=== PATIENT | female | born 1970 | race Caucasian/White ===

== ENCOUNTER → 2016-12-03 | Outpatient (CLI) | payer OTHER ==
--- NOTE | 2016-12-03 22:25 | MR ---
EXAMINATION TYPE: MR thoracic spine wo con DATE OF EXAM: 12/03/2016 9:04 PM COMPARISON: 01/04/2015 HISTORY: Mid and lower back pain for several years TECHNIQUE: Multiplanar multisequence noncontrast imaging thoracic spine FINDINGS: Vertebral body hemangioma noted within T5 and T9. Alignment is maintained as well as verteb ral body height and disc interspaces. Mild loss of disc signal at T6-T7, T7-T8, and T8-T9 compatible stable mild degenerative disc disease. At T6-T7 there is a left paracentral disc herniation with mild effacement of thecal sac. It encroache s upon the anterior margin of the spinal cord results in significant effacement of thecal sac. There is slight displacement of the spinal cord secondary to mass effect upon the thecal sac. No evidence o f myelitis. Neural foramina remain patent. At T7-T8 there is a small left paracentral disc herniation with mild effacement of thecal sac. Mild e ncroachment upon the neural foramina with no definite nerve root contact. All remaining levels demonstrate no evidence of disc herniation, canal stenosis, or neural foraminal encroachment. No abnormal signal seen in the visualized spinal cord. IMPRESSION: 1. At T6-T7 there is a disc herniation paracentrally left with effacement of thecal sac and encroachm ent on the spinal cord. There is slight displacement and distortion of the spinal cord at the disc he rniation abuts the left anterolateral margin of the spinal cord. No myelitis. Findings stable. 2. At T7-T8 there is a small left paracentral disc herniation with mild effacement of thecal sac. Mil d encroachment upon the neural foramina with no definite nerve root contact. Findings stable. EXAMINATION TYPE: MR tspine/lspine wo con DATE OF EXAM: 12/03/2016 9:04 PM COMPARISON: 03/15/2015 HISTORY: Mid and lower back pain for several years TECHNIQUE: T1 and T2 axial and sagittal images of the lumbar spine are submitted. FINDINGS: There is no abnormal signal seen within the visualized spinal cord or paraspinal soft tissu es. Vertebral body hemangiomas at T12 and L1. At L1-2 there is no disc herniation or canal stenosis. No foraminal encroachment. At L2-3 there is no disc herniation or canal stenosis. No foraminal encroachment. At L3-4 there is mild disc desiccation and broad-based central disc bulging but no evidence of canal stenosis. No foraminal encroachment. Facet arthropathy noted. At L4-5 there is annular tear and broad-based central disc protrusion slightly greater paracentrally the right with mild effacement of thecal sac. No foraminal encroachment. Facet arthropathy noted. At L5-S1 there is no disc herniation or canal stenosis. No foraminal encroachment. Facet arthropathy noted. IMPRESSION: 1. Annular tear and broad-based central disc protrusion at L4-L5 with mild effacement of thecal sac i s stable. 2. Degenerative disc disease and disc bulging L3-L4 with no canal stenosis or foraminal encroachment.
== END | disposition home or self-care (01) ==
LOC: RADMRIMAIN 19:41
PROVIDERS: ATTEND Psychiatry & Neurology Neurology
DX: M51.26 Other intervertebral disc displacement, lumbar region (principal); M51.36 Other intervertebral disc degeneration, lumbar region
CPT/HCPCS: 72146; 72148

== ENCOUNTER 2016-12-18 09:47 | Day surgery (SDC) | payer OTHER ==
[2016-12-16 09:29] VITALS: BMI 21.2
[2016-12-18 10:39] VITALS: RESP 16; TEMP 97
[2016-12-18] MEDS ORDERED: LIDOCAINE 1% 20 ML VIAL (10MG/ML) FOR IV START INTRADERMA ONE (10:51)
[2016-12-18] MEDS: LACTATED RINGERS 1,000 ML IV SCH ×2 (10:51→11:13)
[2016-12-18] MEDS ORDERED: LIDOCAINE 1% INJ 10MG/ML (20 ML MDV) ONE (11:15)
[2016-12-18] MEDS ORDERED: PROPOFOL 10 MG/ML 20 ML VIAL IV ONE (11:15)
--- NOTE | 2016-12-18 11:32 | P.PCN ---
Date of Procedure: 12/18/16 Procedure(s) Performed: BRIEF HISTORY: Patient is a 46-year-old pleasant white female, scheduled for an elective colonoscopy as a part of screening for colorectal neoplasia. She does have strong family history of colon cancer diagnosed in her first cousin at age 20, paternal uncle at age 60 and maternal grandfather at age 60. PROCEDURE PERFORMED: Colonoscopy. PREOPERATIVE DIAGNOSIS: Screening for colon cancer and strong family history of colon cancer. IV sedation per Anesthesia. PROCEDURE: After informed consent was obtained, the patient, was brought into the endoscopy unit. IV sedation was administered by Anesthesia under continuous monitoring. Digital rectal examination was normal. Initially the Olympus CF- 160 flexible video colonoscope was then inserted in the rectum, gradually advanced into the cecum without any difficulty. Careful examination was performed as the scope was gradually being withdrawn. Ileocecal valve and the appendiceal orifice were visualized and appeared normal. Prep was fair and thorough irrigation was performed using irrigation system. Mucosa of the cecum, ascending colon, transverse colon, descending colon, sigmoid colon, and rectum appeared normal. Retroflexion was performed in the rectum and no lesions were seen. The patient tolerated the procedure well. IMPRESSION: Normal-appearing colon from rectum to cecum with no evidence of colorectal neoplasia . RECOMMENDATIONS: Findings of this examination were discussed with the patient as well as a family. She was advised to have a repeat screening colonoscopy in 5 years because of the strong family history of colon cancer.
[2016-12-18 12:01] VITALS: PULSE 61
[2016-12-18 12:07] VITALS: BP 105/71
== END 2016-12-18 12:15 | disposition home or self-care (01) ==
LOC: ORWHC2ENDO 09:47
PROVIDERS: ATTEND Internal Medicine Gastroenterology
DX: Z12.11 Encounter for screening for malignant neoplasm of colon (principal); K21.9 Gastro-esophageal reflux disease without esophagitis; G43.909 Migraine, unspecified, not intractable, without status migrainosus; G89.29 Other chronic pain; M54.9 Dorsalgia, unspecified; Z87.891 Personal history of nicotine dependence; Z80.0 Family history of malignant neoplasm of digestive organs; Z88.1 Allergy status to other antibiotic agents; Z88.2 Allergy status to sulfonamides; Z79.899 Other long term (current) drug therapy; Z79.1 Long term (current) use of non-steroidal anti-inflammatories (NSAID); Z79.891 Long term (current) use of opiate analgesic
CPT/HCPCS: J2001; J2704; G0105; 80061; 82947

== ENCOUNTER → 2018-04-26 | Outpatient (CLI) | payer OTHER ==
--- NOTE | 2018-04-27 10:10 | MR ---
EXAMINATION TYPE: MR lumbar spine wo con DATE OF EXAM: 04/26/2018 COMPARISON: Prior lumbar MRI 03/15/2018 HISTORY: LBP, radiates into lt buttock x 4 mos, no trauma TECHNIQUE: Multiplanar, multisequence images of the lumbar spine were acquired. L1-L2: Normal disc appearance without desiccation. No herniation, protrusion or disc bulging. No ca nal stenosis is present. Foramina are patent bilaterally. L2-L3: Normal disc appearance without desiccation. No herniation, protrusion or disc bulging. No ca nal stenosis is present. Foramina are patent bilaterally. L3-L4: There is some loss of disc signal compatible disc desiccation. Broad-based posterior disc bulg e causes minimal anterior mass effect on the thecal sac. L4-L5: Posterior broad-based disc bulge contacts anterior thecal sac causes mild anterior mass effect , proximal left L5 nerve root and possibly right show contact. L5-S1: Normal disc appearance without desiccation. No herniation, protrusion or disc bulging. No ca nal stenosis is present. Foramina are patent bilaterally. Lumbar segments are intact. No paraspinal masses are identified. Conus medullaris is not seen. Loss of disc height signal again noted L4-5 with increased signal of the posterior aspect of the disc com patible with annular tear. No significant foraminal encroachment or central canal stenosis. IMPRESSION: Mild degenerative disc disease is similar to prior exam. Correlate for L5 radiculopathy. Mild facet a rthropathy.
== END | disposition home or self-care (01) ==
LOC: RADMRIMAIN 19:47
PROVIDERS: ATTEND Physical Medicine & Rehabilitation
DX: M51.16 Intervertebral disc disorders with radiculopathy, lumbar region (principal); M70.61 Trochanteric bursitis, right hip
CPT/HCPCS: 72148

== ENCOUNTER → 2018-05-31 | Outpatient (CLI) | payer OTHER ==
--- NOTE | 2018-05-31 22:47 | MR ---
MRI CERVICAL SPINE: CLINICAL HISTORY: Cervicalgia and cervical radiculopathy per order. TECHNIQUE: Multiplanar, multisequence imaging of the cervical spine is performed without IV contrast. COMPARISON: MRI cervical spine December 21, 2015. FINDINGS: Sagittal images of the cervical spine show the craniocervical junction to remain within nor mal limits. The cervical and upper thoracic spinal cord is normal in course and caliber. Vertical in creased T2 signal sagittal image 7 is unchanged from prior study of uncertain etiology as there is no distinct syrinx seen on axial images. Vertebral alignment is stable and anatomic. The vertebral bod y and intravertebral disk heights are normal. Multilevel small posterior disc herniations are redemon strated on sagittal images C3-C4 through C6-C7 level effacing anterior thecal sac. The bone marrow si gnal intensity is within normal limits. Small scattered hemangiomas are noted largest posterior C6 le aydin sagittal image 9. Axial images show to C2-C3 level to appear within normal limits. Axial images at C3-C4 level shows broad-based posterior disc protrusion mildly effaces the anterior t hecal sac, bilateral neural foramina are patent. No significant change from prior. Axial images at C4-C5 levels with broad-based posterior disc protrusion mildly effaces the anterior t hecal sac, bilateral neural foramina are patent. No significant change from prior. Axial images at C5-C6 levels show more prominent broad-based posterior disc protrusion effacing the a nterior thecal sac and causing mild left greater than right bilateral neural foraminal narrowing. No significant change from prior. Axial images at C6-C7 level demonstrates broad-based left paracentral disc protrusion effacing the an terior thecal sac on axial image 14, bilateral neural foramina are patent. No significant change from prior. Axial images at C7-T1 level remain within normal limits. IMPRESSION: Multilevel degenerative changes in cervical spine most prominent at C5-C6 and C6-C7 level as detailed above. No significant change or progression from prior MRI is identified.
== END | disposition home or self-care (01) ==
LOC: RADMRIMAIN 18:49
PROVIDERS: ATTEND Physical Medicine & Rehabilitation
DX: M47.22 Other spondylosis with radiculopathy, cervical region (principal); M51.17 Intervertebral disc disorders with radiculopathy, lumbosacral region; M47.27 Other spondylosis with radiculopathy, lumbosacral region; M70.61 Trochanteric bursitis, right hip
CPT/HCPCS: 72141

== ENCOUNTER → 2018-07-15 | Outpatient (CLI) | payer OTHER ==
--- NOTE | 2018-07-16 10:47 | NM ---
EXAMINATION TYPE: NM bone scan whole body with SPECT DATE OF EXAM: 07/15/2018 COMPARISON: MRI 04/26/2018 HISTORY: Back pain Delayed whole-body scanning was performed following the injection of 23 mCi Tc 99m MDP. Images acqui red 3 hours post injection. FINDINGS: Increased uptake at the sternoclavicular junction on the right. Curvature the spine is seen with mild uptake involving the lower cervical and cervical thoracic junct ion, mid and lower thoracic spine. Very minimal uptake in L4-L5. IMPRESSION: 1. Nonspecific mild intensity uptake involving the cervical and thoracic lower lumbar spine likely de generative. 2. Abnormal uptake at the right sternoclavicular joint likely post arthritic but nonspecific correlat e with x-ray as clinically warranted.
== END | disposition home or self-care (01) ==
LOC: RADNMMAIN 09:58
PROVIDERS: ATTEND Orthopaedic Surgery Orthopaedic Surgery of the Spine
DX: M54.16 Radiculopathy, lumbar region (principal)
CPT/HCPCS: 78306; 78320; A9503

== ENCOUNTER 2019-07-12 14:30 | Emergency (ER) | payer OTHER ==
[2019-07-12 14:40] VITALS: BP 124/76; PULSE 73; RESP 18; TEMP 98.2
--- NOTE | 2019-07-12 15:22 | ED ---
General Adult HPI - General Source: patient, RN notes reviewed, old records reviewed Mode of arrival: ambulatory Limitations: no limitations <Ray Lin - Last Filed: 07/12/19 15:20> <Nikki Azul - Last Filed: 07/14/19 00:57> - General Chief complaint: Recheck/Abnormal Lab/Rx Stated complaint: Needle stick, [facility] Time Seen by Provider: 07/12/19 14:41 - History of Present Illness Initial comments: 49-year-old female patient no pertinent past month history presents to the chief complaint of needle stick. Patient was happened to the distal aspect of her left index finger. Patient reports that have approximately 7 AM. Reports severe sickling the wound after. States the tetanus is up-to-date. Reports that the needle was a small gauge hollow needle from insulin injection which was not recently used. Denies any other complaints. Systemic: Pt denies fatigue, fever/chills, rash. Pt denies weakness, night sweats, weight loss. Neuro: Pt denies headache, visual disturbances, syncope or pre-syncope. HEENT: Pt denies ocular discharge or irritation, otalgia, rhinorrhea, pharyngitis or notable lymphadenopathy. Cardiopulmonary: Pt denies chest pain, SOB, heart palpitations, dyspnea on exertion. Abdominal/GI: Pt denies abdominal pain, n/v/d. : Pt denies dysuria, burning w/ urination, frequency/urgency. Denies new onset urinary or bowel incontinence. MSK: Pt denies myalgia, loss of strength or function in extremities. Neuro: Pt denies new onset weakness, paresthesias. (Ray Lin) - Related Data Home Medications Medication Instructions Recorded Confirmed Chlorpheniramine Maleate 4 mg PO DAILY PRN 12/16/16 12/18/16 [Chlor-Trimeton] Hydrocodone/Acetaminophen 1 tab PO ONCE PRN 12/16/16 12/18/16 [Hydrocodon-Acetaminoph 7.5-325] Ibuprofen [Motrin] 200 - 400 mg PO Q6HR PRN 12/16/16 12/18/16 Omeprazole [PriLOSEC] 20 mg PO DAILY PRN 12/16/16 12/18/16 Topiramate 50 mg PO DAILY 12/16/16 12/18/16 tiZANidine HCL 2 mg PO BID PRN 12/16/16 12/18/16 Allergies Allergy/AdvReac Type Severity Reaction Status Date / Time metronidazole [From Flagyl] Allergy Rash/Hives Verified 07/12/19 14:37 sulfamethoxazole Allergy Rash/Hives Verified 07/12/19 14:37 [From Bactrim] trimethoprim [From Bactrim] Allergy Rash/Hives Verified 07/12/19 14:37 Review of Systems ROS Other: All systems not noted in ROS Statement are negative. <Ray Lin - Last Filed: 07/12/19 15:20> ROS Other: All systems not noted in ROS Statement are negative. <Nikki Azul - Last Filed: 07/14/19 00:57> ROS Statement: Those systems with pertinent positive or pertinent negative responses have been documented in the HPI. Past Medical History Past Medical History: GERD/Reflux Additional Past Medical History / Comment(s): Hx migraines,colon polyps,IBS,stated "I was told by Dr Lieberman had bleeding or clotting disorder and was told by Dr Lieberman needed to heparinized prior to surgeries." History of Any Multi-Drug Resistant Organisms: None Reported Past Surgical History: Section, Hysterectomy, Tonsillectomy Additional Past Surgical History / Comment(s): c-sect x 3 Past Anesthesia/Blood Transfusion Reactions: Previous Problems w/ Anesthesia, Motion Sickness Additional Past Anesthesia/Blood Transfusion Reaction / Comment(s): "my breathing got really low with my c-sections",no hx blood transfusion Past Psychological History: No Psychological Hx Reported Smoking Status: Former smoker Past Alcohol Use History: Occasional Past Drug Use History: None Reported - Past Family History Mother Family Medical History: Cancer Additional Family Medical History / Comment(s): colon Father Family Medical History: Cancer Additional Family Medical History / Comment(s): colon <Ray Lin - Last Filed: 07/12/19 15:20> General Exam Limitations: no limitations <Ray Lin - Last Filed: 07/12/19 15:20> - General Exam Comments Initial Comments: Constitutional: NAD, AOX3, Pt has pleasant affect. HEENT: NC/AT, trachea midline, neck supple, no lymphadenopathy. Posterior pharynx non erythematous, without exudates. External ears appear normal, without discharge. Mucous membranes moist. Eyes PERRLA, EOM intact. There is no scleral icterus. No pallor noted. Cardiopulmonary: RRR, no murmurs, rubs or gallops, no JVD noted. Lungs CTAB in anterior and posterior alas. No peripheral edema. Abdominal exam: Abdomen soft and non-distended. Abdomen non-tender to palpation in all 4 quadrants. Bowel sounds active in LLQ. No hepatosplenomegaly. No ecchymosis Neuro: CN II-XII grossly intact. No nuchal rigidity. No raccon eyes, no rosario sign, no hemotympanum. No cervical spinal tenderness. MSK: No puncture wound noted. No posterior calf tenderness bilaterally, homans sign negative bilaterally. Posterior tibialis and radial pulse +2 bilaterally. Sensation intact in upper and lower extremities. Full active ROM in upper and lower extremities, 5/5 stregnth. (Ray Lin) Course Vital Signs 07/12/19 14:37 Temperature 98.2 F Pulse Rate 73 Respiratory 18 Rate Blood Pressure 124/76 O2 Sat by Pulse 97 Oximetry Medical Decision Making <Ray Lin - Last Filed: 07/12/19 15:20> <Nikki Azul - Last Filed: 07/14/19 00:57> - Medical Decision Making 49-year-old male patient written C for needle stick. Patient vital signs are stable, afebrile. Patient declined prophylaxis. Will discharge all the contacted with her rapid HIV results. Case discussed with Dr. Azul. (Ray Lin) I was available for consultation in the emergency department. The history and physical exam were done by the midlevel provider. I was consulted for this patients care. I reviewed the case with the midlevel provider and based on their presentation of the patient, I agree with the assessment, medical decision making and plan of care as documented. Chart was dictated using [employer] dictation software. Attempts were made to correct any dictation errors however some typographical errors may persist. (Nikki Azul) - Lab Data Lab Results 07/12/19 07/12/19 Range/Units 14:55 14:55 Hep Bs Antibody Reactive H (Non-Reactive) Hep Bs Antibody, Quant 680.8 mIU/mL Hep C IgG Ab Non-Reactive (Non-Reactive) HIV-1 Antibody Non-Reactive (Non-Reactive) HIV Ag/Ab Interpret HIV p24 Antibody Non-Reactive (Non-Reactive) HIV-2 Antibody Non-Reactive (Non-Reactive) HIV P24 Antigen Non-Reactive (Non-Reactive) Disposition Is patient prescribed a controlled substance at d/c from ED?: No <Ray Lin - Last Filed: 07/12/19 15:20> <Nikki Azul - Last Filed: 07/14/19 00:57> Clinical Impression: Needlestick injury accident Disposition: HOME SELF-CARE Condition: Stable Instructions (If sedation given, give patient instructions): Needle Stick Injuries (ED) Additional Instructions: Patient to adhere to previously discussed treatment plan and will take medication(s) as directed. Patient to follow up with PCP in 1-2 days. Patient to return to ED if symptoms do not improve. Referrals: Isaac Mccormick MD [Primary Care Provider] - 1-2 days
[2019-07-13 01:06] LABS: HIV 1 AB Non-Reactive (Non-Reactive); HIV 2 AB Non-Reactive (Non-Reactive); HIV AB P24 Non-Reactive (Non-Reactive); HIV P24 AG Non-Reactive (Non-Reactive)
[2019-07-13 01:13] LABS: Hepatitis B Surface AB- Quant 680.8 mIU/mL; Hepatitis B Surface Antibody Reactive (Non-Reactive); Hepatitis C IgG Antibody Non-Reactive (Non-Reactive)
== END 2019-07-12 15:22 | disposition home or self-care (01) ==
LOC: EC 14:30
DX: S69.92XA Unspecified injury of left wrist, hand and finger(s), initial encounter (principal); Z87.891 Personal history of nicotine dependence; Z88.1 Allergy status to other antibiotic agents; Z88.2 Allergy status to sulfonamides; Z79.899 Other long term (current) drug therapy; Z86.69 Personal history of other diseases of the nervous system and sense organs; W46.0XXA Contact with hypodermic needle, initial encounter; Y93.89 Activity, other specified; Y92.69 Other specified industrial and construction area as the place of occurrence of the external cause; Y99.0 Civilian activity done for income or pay
CPT/HCPCS: 36415; 86706; 86803; 87390; 99283

== ENCOUNTER → 2023-05-23 | Outpatient (CLI) | payer BC ==
--- NOTE | 2023-05-23 12:21 | MR ---
EXAMINATION TYPE: MR tspine/lspine wo con DATE OF EXAM: 05/23/2023 11:53 AM COMPARISON: NONE HISTORY: Pain mid and lower back Multiplanar MultiSpin echo imaging of the thoracic spine was performed. Disc spaces: Left paracentral disc herniation at T7-T8 which measures 3.6 mm in AP dimension and 7 mm in transverse dimension. There is effacement of the ventral thecal sac and mild distortion of the th oracic spinal cord without compressive myelopathy. Mild disc desiccation at T6-T7 with minimal straightener gun parts ior disc bulge. Remaining levels are within normal limits. Spinal canal: No evidence for canal stenosis. No intrinsic or extrinsic lesion. Thoracic spinal cord: Thoracic spinal cord is of normal caliber and signal. Paraspinal soft tissues: No evidence for paraspinal mass. No destructive lesions seen. Vertebral segments: No evidence for fracture or bony lesion. T9 and T10 hemangioma seen. IMPRESSION: 1. Left paracentral disc herniation as discussed at T7-T8 with effacement of the thecal sac and mild portion of the thoracic spinal cord without compressive myelopathy. EXAMINATION TYPE: MR tspine/lspine wo con DATE OF EXAM: 05/23/2023 11:53 AM COMPARISON: NONE HISTORY: Pain mid and lower back Multiplanar, MultiSpin echo imaging of the lumbar spine was performed. L1-L2: Normal disc appearance without desiccation. No herniation, protrusion or disc bulging. No ca nal stenosis is present. Foramina are patent bilaterally. L2-L3: Normal disc appearance without desiccation. No herniation, protrusion or disc bulging. No ca nal stenosis is present. Foramina are patent bilaterally. L3-L4: Mild disc desiccation noted. Mild posterior disc bulge with minimal effacement ventral thecal sac. No evidence for herniation or central stenosis. Mild left foraminal encroachment. L4-L5: Mild to moderate disc desiccation with broad-based posterior disc bulge which effaces the vent ral thecal sac. There is left lateral recess stenosis. No evidence for central stenosis. Mild left fo raminal encroachment. Facet joint arthropathy. L5-S1: Normal disc appearance without desiccation. No herniation, protrusion or disc bulging. No ca nal stenosis is present. Foramina are patent bilaterally. Lumbar segments are intact. No paraspinal masses are identified. Conus medullaris has a normal appe arance. IMPRESSION: 1. Degenerative disc disease as discussed. 2. Disc bulging with left neural foraminal encroachment left lateral recess stenosis at L4-5.
== END | disposition home or self-care (01) ==
LOC: RADMRIMAIN 10:23
PROVIDERS: ATTEND Psychiatry & Neurology Neurology
DX: M51.24 Other intervertebral disc displacement, thoracic region (principal); M51.27 Other intervertebral disc displacement, lumbosacral region; M47.814 Spondylosis without myelopathy or radiculopathy, thoracic region; M47.817 Spondylosis without myelopathy or radiculopathy, lumbosacral region
CPT/HCPCS: 72146; 72148

== ENCOUNTER 2025-03-08 08:35 | Day surgery (SDC) | payer BC ==
[2025-03-07 09:44] VITALS: BMI 28.1
[2025-03-08 09:14] VITALS: RESP 16; TEMP 97
[2025-03-08] MEDS: LACTATED RINGERS 1,000 ML IV SCH (09:16)
[2025-03-08] MEDS: LIDOCAINE 1% (10MG/ML) FOR IV START INTRADERMA STA (09:17)
[2025-03-08] MEDS: IV FLUID CONTINUATION 1,000 ML IV ONE (09:17)
[2025-03-08] MEDS ORDERED: PROPOFOL 10 MG/ML 20 ML VIAL IV ONE (10:13)
--- NOTE | 2025-03-08 10:31 | P.PCN ---
Date of Procedure: 03/08/25 Procedure(s) Performed: BRIEF HISTORY: Patient is a 54-year-old pleasant white female scheduled for an elective colonoscopy as a part of screening for colon cancer and strong family history of colon cancer. Her paternal paternal uncles and 3 first cousins all diagnosed with colon cancer between ages 18 and 40. PROCEDURE PERFORMED: Colonoscopy. PREOPERATIVE DIAGNOSIS: Screening for colon cancer and strong family history of colon cancer. IV sedation per Anesthesia. PROCEDURE: After informed consent was obtained, the patient, was brought into the endoscopy unit. IV sedation was administered by Anesthesia under continuous monitoring. Digital rectal examination was normal. Initially the Olympus CF-160 flexible video colonoscope was then inserted in the rectum, gradually advanced into the cecum without any difficulty. Careful examination was performed as the scope was gradually being withdrawn. Ileocecal valve and the appendiceal orifice were visualized and appeared normal. Prep was excellent. Mucosa of the cecum, ascending colon, transverse colon, descending colon, sigmoid colon, and rectum appeared normal. Retroflexion was performed in the rectum and no lesions were seen. The patient tolerated the procedure well. IMPRESSION: Normal-appearing colon from rectum to cecum with no evidence of colorectal neoplasia. RECOMMENDATIONS: Findings of this examination were discussed with the patient as well as her family. She was advised to have repeat screening colonoscopy in 5 years because of the strong family history of colon cancer..
[2025-03-08 11:05] VITALS: BP 111/76; PULSE 78
== END 2025-03-08 11:23 | disposition home or self-care (01) ==
LOC: ORWHC2ENDO 08:35
PROVIDERS: ATTEND Internal Medicine Gastroenterology
DX: Z12.11 Encounter for screening for malignant neoplasm of colon (principal); K58.9 Irritable bowel syndrome, unspecified; I10 Essential (primary) hypertension; E78.5 Hyperlipidemia, unspecified; I20.9 Angina pectoris, unspecified; M19.90 Unspecified osteoarthritis, unspecified site; G43.909 Migraine, unspecified, not intractable, without status migrainosus; Z91.89 Other specified personal risk factors, not elsewhere classified; Z79.1 Long term (current) use of non-steroidal anti-inflammatories (NSAID); Z79.899 Other long term (current) drug therapy; Z80.0 Family history of malignant neoplasm of digestive organs; Z88.1 Allergy status to other antibiotic agents; Z88.8 Allergy status to other drugs, medicaments and biological substances
CPT/HCPCS: 45378; J2704